=== PATIENT | male | born 1990 | race Two or more races ===

== ENCOUNTER 2022-09-29 16:47 | Emergency (ER) | payer OTHER ==
[2022-09-29 16:55] VITALS: BP 145/84; PULSE 106; RESP 18; TEMP 98.1; BMI 43.2
== END 2022-09-29 18:24 | disposition home or self-care (01) ==
LOC: JERFT 16:47
DX: S82.892A Other fracture of left lower leg, initial encounter for closed fracture (principal); W10.9XXA Fall (on) (from) unspecified stairs and steps, initial encounter
CPT/HCPCS: 73610-TC-LT-FY; 73630-TC-LT; 99283-25

== ENCOUNTER 2022-10-06 06:13 | Day surgery (SDC) | payer OTHER ==
[2022-10-06 06:19] VITALS: BMI 43.2
[2022-10-06] MEDS ORDERED: LACTATED RINGERS SOLUTION 1,000 ML IV SCH (12:30)
[2022-10-06] MEDS ORDERED: oxyCODONE HCL 5 MG TABLET PO PRN (12:30)
[2022-10-06] MEDS ORDERED: ONDANSETRON 4 MG/2 ML VIAL IVPUSH PRN (12:30)
[2022-10-06] MEDS ORDERED: ACETAMINOPHEN 325 MG TABLET (FP) PO PRN (12:30)
[2022-10-06] MEDS ORDERED: BUPIVACAINE HCL/PF 0.5% (5MG/ML) 10 ML VIAL ONE ×2 (12:34→13:01)
[2022-10-06] MEDS ORDERED: MIDAZOLAM HCL 2 MG/2 ML SINGLE DOSE VIAL ONE ×2 (12:35→13:17)
[2022-10-06] MEDS ORDERED: PROPOFOL 20 ML ONE ×2 (13:17→13:50)
[2022-10-06] MEDS ORDERED: KETAMINE HCL 500 MG/10 ML VIAL ONE (13:32)
[2022-10-06] MEDS ORDERED: ceFAZolin SODIUM 1 GM VIAL IVPB ONE (13:34)
[2022-10-06] MEDS ORDERED: SUCCINYLCHOLINE CHLORIDE 200 MG/10 ML SYRINGE ONE (13:39)
[2022-10-06] MEDS ORDERED: DEXAMETHASONE SOD PHOSPHATE 4 MG/1 ML VIAL ONE (14:01)
[2022-10-06] MEDS ORDERED: KETOROLAC TROMETHAMINE 30 MG/1 ML VIAL ONE (14:01)
[2022-10-06] MEDS ORDERED: ONDANSETRON 4 MG/2 ML VIAL ONE ×2 (14:01→16:13)
[2022-10-06 18:46] VITALS: BP 146/87; PULSE 102; RESP 20; TEMP 97.3
== END 2022-10-06 18:40 | disposition home or self-care (01) ==
LOC: JER 06:13 → JASUSAT 09:28
PROVIDERS: ATTEND Orthopaedic Surgery
PROC: 0QSG04Z Reposition Right Tibia with Internal Fixation Device, Open Approach (ICD-10-PCS; 2022-10-06)
PROC: 0QSG04Z Reposition Right Tibia with Internal Fixation Device, Open Approach (ICD-10-PCS; 2022-10-06)
PROC: 0QSJ04Z Reposition Right Fibula with Internal Fixation Device, Open Approach (ICD-10-PCS; principal; 2022-10-06 12:15)
DX: S82.851A Displaced trimalleolar fracture of right lower leg, initial encounter for closed fracture (principal); S93.431A Sprain of tibiofibular ligament of right ankle, initial encounter; X58.XXXA Exposure to other specified factors, initial encounter; Y93.9 Activity, unspecified; Y92.9 Unspecified place or not applicable; Y99.9 Unspecified external cause status
CPT/HCPCS: 27822; C1713; 76000-TC-FY; 94760; 99285-25